=== PATIENT | male | born 1950 | race Caucasian/White ===

== ENCOUNTER → 2016-04-24 | Outpatient (CLI) | payer BC ==
--- NOTE | 2016-04-24 11:40 | DIAGNOSTIC IMAGING REPORT ---
RIGHT ANKLE MIN 3 VIEWS ROUTINE CLINICAL HISTORY: Right ankle pain COMPARISON: None. DISCUSSION: There is a tiny plantar calcaneal spur. There is a small subchondral cyst in the medial aspect of the talar dome. There is an age-indeterminate avulsion fracture arising from the lateral aspect of the talus. No additional fractures are visualized. There is lateral soft tissue swelling. IMPRESSION: Lateral soft tissue swelling, and small age-indeterminate sliver-like avulsion arising from the lateral aspect of the talus Electronically signed by: Ottoniel Flores M.D. 04/24/2016 11:39 AM Dictated Date/Time: 04/24/2016 11:38 AM
--- NOTE | 2016-04-24 11:43 | DIAGNOSTIC IMAGING REPORT ---
RIGHT KNEE 2 VIEWS CLINICAL HISTORY: Right knee pain. FINDINGS: AP and lateral views of the right knee are obtained. No prior studies are available for comparison at the time of dictation. The skeletal structures appear osteopenic. No fracture is seen. There is mild tricompartmental degenerative joint space narrowing, greatest in the patellofemoral compartment. There is a large calcified fabella. A small osteochondroma is suggested arising from the posterior aspect of the distal femur. No joint effusion is seen. The overlying soft tissues are within normal limits. IMPRESSION: No acute bony abnormality is seen in the right knee. Electronically signed by: Hossein Padron M.D. 04/24/2016 11:41 AM Dictated Date/Time: 04/24/2016 11:40 AM
== END | disposition home or self-care (01) ==
LOC: C.RAD1850 11:11
PROVIDERS: ATTEND Nurse Practitioner
DX: S93.401A Sprain of unspecified ligament of right ankle, initial encounter (principal); X58.XXXA Exposure to other specified factors, initial encounter

== ENCOUNTER → 2017-10-01 | Outpatient (CLI) | payer OTHER ==
--- NOTE | 2017-10-01 08:33 | DIAGNOSTIC IMAGING REPORT ---
ULTRASOUND EXAM AAA SCREEN CLINICAL HISTORY: TYPE 2 DM, NICOTINE DEPENDENCE aneurysm TECHNIQUE: Survey ultrasound abdominal aorta COMPARISON STUDY: None FINDINGS: Normal study. No evidence for aneurysm. IMPRESSION: Normal study The above report was generated using voice recognition software. It may contain grammatical, syntax or spelling errors. Electronically signed by: Tae Simon M.D. 10/01/2017 8:32 AM Dictated Date/Time: 10/01/2017 8:32 AM
== END | disposition home or self-care (01) ==
LOC: C.ULTR 08:07
PROVIDERS: ATTEND Family Medicine
DX: E11.9 Type 2 diabetes mellitus without complications (principal); F17.200 Nicotine dependence, unspecified, uncomplicated; Z87.891 Personal history of nicotine dependence

== ENCOUNTER 2021-10-16 08:00 | Inpatient (IN) ==
[2021-10-16] MEDS ORDERED: CEFEPIME 2,000 MG/20 ML VIAL IV STA (08:28)
[2021-10-16] MEDS ORDERED: SODIUM CHLORIDE 0.9% 1000ML 1,000 ML IV SCH (08:30)
[2021-10-16 09:02] LABS: Basophils # (auto) 0.02 K/uL (0-0.2); Basophils % (auto) 0.2 %; Eosinophils # (auto) 0.12 K/uL (0-0.50); Eosinophils % (auto) 1.1 %; Hematocrit (blood only) 36.7 % (40.1-51.0); Hemoglobin 12.4 g/dl (14.0-18.0); Immature Granulocytes # (auto) 0.05 K/uL (0.00-0.02); Immature Granulocytes % (auto) 0.4 %; Lymphocytes # (auto) 0.48 K/uL (1.2-3.4); Lymphocytes % (auto) 4.3 %; Mean Corpuscular Hemoglobin 30.1 pg (25.0-34.0); Mean Corpuscular Hgb Conc 33.8 g/dL (32.0-36.0); Mean Corpuscular Volume 89.1 fL (80.0-100.0); Mean Platelet Volume 9.5 fL (9.4-12.4); Monocytes # (auto) 1.47 K/uL (0.24-0.82); Monocytes % (auto) 13.2 %; Neutrophils # (auto) 9.03 K/uL (1.4-6.5); Neutrophils % (auto) 80.8 %; Platelet Count 251 K/uL (130-400); RDW Coefficient of Variation 13.2 % (11.5-14.5); RDW Standard Deviation 42.9 fL (36.4-46.3); Red Blood Count 4.12 M/uL (4.63-6.08); White Blood Count 11.17 K/ul (4.8-10.8)
--- NOTE | 2021-10-16 09:06 | XRay Report ---
SINGLE VIEW CHEST CLINICAL HISTORY: Cough FINDINGS: An AP, portable, upright chest radiograph is compared to study dated 02/12/2020. The cardio mediastinal silhouette is unremarkable. There are bibasilar airspace opacities, left greater than rig ht. No large pleural effusion or pneumothorax is seen. The skeletal structures are osteopenic. The [place] thorax is grossly intact. IMPRESSION: There are bibasilar airspace opacities, left greater than right. Correlate clinically for evidence of pneumonia/aspiration pneumonitis. Radiographic follow-up to resolution is recommended. ACT 112: Negative or not required by law. Electronically signed by: Hossein Padron M.D. 10/16/2021 9:03 AM
[2021-10-16 09:15] LABS: Partial Thromboplastin Time 28.8 Seconds (21.0-31.0); Prothrombin Time 10.4 Seconds (9.0-12.0)
[2021-10-16 09:29] LABS: Alanine Aminotransferase 11 U/L (7-52); Albumin Globulin Ratio 1.2 (0.9-2); Albumin Level 3.6 gm/dl (3.4-5.0); Alkaline Phosphatase 98 U/L (34-104); Anion Gap 13 (3-11); Aspartate Aminotransferase 11 U/L (13-39); BUN Creatinine Ratio 30.2 (10-20); Bilirubin,Total 1.5 mg/dl (0.2-1.0); Blood Urea Nitrogen 16 mg/dl (6-23); Calcium 8.9 mg/dl (8.5-10.1); Carbon Dioxide 24 mmol/L (21-32); Chloride 94 mmol/L (98-107); Est GFR (African American) 125.1 ml/min; Glucose 359 mg/dl (70-99(Fasting)); Magnesium 1.7 mg/dl (1.7-2.4); Potassium 3.5 mmol/L (3.5-5.1); Sodium 131 mmol/L (136-145); Total Protein 6.6 gm/dl (6.0-8.3)
[2021-10-16 09:31] LABS: Troponin I High Sensitivity 16.1 pg/ml (0-20)
[2021-10-16 09:55] LABS: Appearance Urine Clear (Clear); Bacteria Urine Automated Negative (Negative); Bilirubin Urine Negative (Negative); Blood Urine Negative (Negative); Cast Urine Automated 0 /lpf (0-5); Color Urine Yellow; Glucose Urine UA 3+ (Negative); Ketones Urine 4+ (Negative); Leukocyte Esterase Urine Negative (Negative); Nitrite Urine Negative (Negative); Protein Urine Trace (Negative); RBC Urine Automated 0-4 /hpf (0-4); Specific Gravity Urine 1.038 (1.000-1.030); Urobilinogen Urine Negative (Negative)
[2021-10-16 09:57] LABS: Adenovirus PCR Not Detected (NotDetected); Bordetella parapertussis PCR Not Detected (NotDetected); Bordetella pertussis PCR Not Detected (NotDetected); Chlamydia pneumoniae PCR Not Detected (NotDetected); Coronavirus 229E PCR Not Detected (NotDetected); Coronavirus CoV-2 (COVID19)PCR Not Detected (NotDetected); Coronavirus HKU1 PCR Not Detected (NotDetected); Coronavirus NL63 PCR Not Detected (NotDetected); Coronavirus OC43PCR Not Detected (NotDetected); Human Metapneumovirus PCR Not Detected (NotDetected); Influenza A PCR Not Detected (NotDetected); Influenza B PCR Not Detected (NotDetected); Mycoplasma pneumoniae PCR Not Detected (NotDetected); Parainfluenza Virus 1 PCR Not Detected (NotDetected); Parainfluenza Virus 2 PCR Not Detected (NotDetected); Parainfluenza Virus 3 PCR Not Detected (NotDetected); Parainfluenza Virus 4 PCR Not Detected (NotDetected); Respiratory Syncytial VirusPCR Not Detected (NotDetected); Rhinovirus/Enterovirus PCR Not Detected (NotDetected)
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
[2021-10-16] MEDS ORDERED: GLUCAGON FOR INJ 1 MG VIAL SQ PRN (10:35)
[2021-10-16] MEDS ORDERED: GLUCOSE 10 TAB/TUBE PO PRN (10:35)
[2021-10-16] MEDS ORDERED: DEXTROSE 50% 50 ML SYRINGE IV PRN (10:35)
[2021-10-16] MEDS ORDERED: CARBOHYDRATES FOR HYPOGLYCEMIA PO PRN (10:35)
[2021-10-16] MEDS ORDERED: GLUCOSE 40% GEL 15 GM TUBE PO PRN (10:35)
[2021-10-16] MEDS ORDERED: NovoLIN-R INSULIN PER UNIT CHARGE IV STA (10:42)
[2021-10-16] MEDS: LANTUS PER UNIT CHARGE SQ SCH ×2 (11:11→22:10)
[2021-10-16] MEDS ORDERED: OPTIRAY 320 100ml IV ONE (11:35)
--- NOTE | 2021-10-16 12:40 | CT Scan Report ---
CT OF THE CHEST WITH IV CONTRAST CLINICAL HISTORY: SOB, hypoxic, with known malignancy COMPARISON STUDY: Chest radiographs February 12, 2020 and October 16, 2021. PET/CT June 24, 2020. TECHNIQUE: Following IV administration of 94 mL of Optiray, helical axial images of the chest were o btained. Sagittal and coronal reconstructions were viewed as well as maximal intensity projections o n an independent 3-D workstation. Automated exposure control was utilized for the study. A dose low ering technique was utilized adhering to the principles of ALARA. CT DOSE: 268.69 mGy.cm FINDINGS: No pericardial effusion is present. There is moderate coronary artery calcification. There are multiple mildly enlarged mediastinal and bilateral hilar lymph nodes. Index left hilar node john ures 1.7 x 1.4 cm. Subcarinal lymph node measures 1.1 cm short axis diameter. Index right lower parat fannie lymph node measures 1.2 cm in short axis diameter. There is no pneumothorax. Small bilateral pleural effusions are noted. There is moderate bilateral lower lobe consolidation. Additional patchy airspace opacities within the right middle lobe are noted. There is no cavitation. Central airways ar e patent. There is no central obstructing mass. No suspicious pulmonary nodules are identified. No bhatti spicious lesions within the visualized bony thorax. Visualized portions of the upper abdomen are unre markable IMPRESSION: 1. Bilateral lower lobe consolidation and patchy right middle lobe airspace opacities. The findings s uggest multifocal pneumonia. 2. Small bilateral pleural effusions. 3. Mildly enlarged mediastinal and bilateral hilar lymph nodes. Although nonspecific, these are proba faviola reactive. A follow-up chest CT in 3-4 months to ensure resolution is recommended. ACT 112: Negative or not required by law. Electronically signed by: Zachariah Portillo M.D. 10/16/2021 12:38 PM
[2021-10-16] MEDS ORDERED: AZITHROMYCIN 250 MG TAB PO ONE (13:32)
[2021-10-16] MEDS: INSULIN ASPART PER UNIT SC SCH ×3 (14:16→22:10)
[2021-10-16] MEDS ORDERED: ONDANSETRON INJ 2 MG/ML 2 ML VIAL IV PRN (15:32)
[2021-10-16] MEDS ORDERED: ACETAMINOPHEN 325 MG TAB PO PRN (15:32)
[2021-10-16] MEDS ORDERED: POLYETHYLENE (MIRALAX) 17 GM PACK PO PRN (15:32)
[2021-10-16] MEDS ORDERED: BENZONATATE 100 MG CAPSULE PO PRN ×2 (15:56→16:05)
[2021-10-16] MEDS: Patient's HEIGHT &/or WEIGHT Needed SCH ×3 (16:47→23:58)
[2021-10-16] MEDS ORDERED: guaiFENesin 600 MG TABCR PO ONE (16:58)
[2021-10-16] MEDS ORDERED: CEFEPIME 2,000 MG/20 ML VIAL ONE (16:59)
[2021-10-16] MEDS: guaiFENesin 600 MG TABCR PO SCH (17:04)
[2021-10-16] MEDS: CEFEPIME 2,000 MG in SYRINGE 0 ML IV SCH ×2 (17:04→23:51)
--- NOTE | 2021-10-16 18:48 | Electrocardiogram Report ---
Test Reason : Blood Pressure : / mmHG Vent. Rate : 100 BPM Atrial Rate : 100 BPM P-R Int : 120 ms QRS Dur : 090 ms QT Int : 328 ms P-R-T Axes : 045 063 055 degrees QTc Int : 423 ms Normal sinus rhythm Nonspecific T wave abnormality Abnormal ECG When compared with ECG of 12-FEB-2020 09:45, Nonspecific T wave abnormality now evident in Inferior leads Nonspecific T wave abnormality now evident in Anterolateral leads Confirmed by Jose Root ([id number]) on 10/16/2021 6:47:47 PM Referred By: REFERRED SELF Confirmed By:Jorge Root
[2021-10-16] MEDS ORDERED: guaiFENesin 600 MG TABCR PO SCH (21:00)
[2021-10-16] MEDS: lisinopril 10 MG TAB PO SCH (22:09)
[2021-10-16] MEDS: ATORVASTATIN 20 MG TAB PO SCH (22:09)
[2021-10-16] MEDS: ASPIRIN 81 MG ECTAB PO SCH (22:10)
[2021-10-17 07:03] LABS: Urine Potassium 14.7 mmol/L
[2021-10-17 07:46] LABS: Basophils # (auto) 0.03 K/uL (0-0.2); Basophils % (auto) 0.3 %; Eosinophils # (auto) 0.23 K/uL (0-0.50); Eosinophils % (auto) 2.3 %; Hematocrit (blood only) 32.2 % (40.1-51.0); Immature Granulocytes # (auto) 0.07 K/uL (0.00-0.02); Immature Granulocytes % (auto) 0.7 %; Lymphocytes # (auto) 0.79 K/uL (1.2-3.4); Lymphocytes % (auto) 7.8 %; Mean Corpuscular Hemoglobin 29.8 pg (25.0-34.0); Mean Corpuscular Hgb Conc 34.2 g/dL (32.0-36.0); Mean Corpuscular Volume 87.3 fL (80.0-100.0); Mean Platelet Volume 9.1 fL (9.4-12.4); Monocytes # (auto) 1.82 K/uL (0.24-0.82); Monocytes % (auto) 17.9 %; Neutrophils # (auto) 7.25 K/uL (1.4-6.5); Platelet Count 242 K/uL (130-400); RDW Coefficient of Variation 12.9 % (11.5-14.5); RDW Standard Deviation 41.1 fL (36.4-46.3); Red Blood Count 3.69 M/uL (4.63-6.08); White Blood Count 10.19 K/ul (4.8-10.8)
[2021-10-17 08:09] LABS: Estimated Average Glucose 298 mg/dl
[2021-10-17 08:30] LABS: Alanine Aminotransferase 11 U/L (7-52); Albumin Globulin Ratio 1.2 (0.9-2); Albumin Level 3.2 gm/dl (3.4-5.0); Alkaline Phosphatase 76 U/L (34-104); Anion Gap 9 (3-11); Aspartate Aminotransferase 13 U/L (13-39); BUN Creatinine Ratio 32.4 (10-20); Bilirubin,Total 1.5 mg/dl (0.2-1.0); Blood Urea Nitrogen 11 mg/dl (6-23); Calcium 8.5 mg/dl (8.5-10.1); Carbon Dioxide 28 mmol/L (21-32); Chloride 98 mmol/L (98-107); Creatinine Clr Calc Pharmacy 198.4 ml/min; Est GFR (African American) > 150.0 ml/min; Est GFR (Non-African American) 129.6 ml/min; Globulin 2.7 gm/dl (2.5-4.0); Glucose 82 mg/dl (70-99(Fasting)); Magnesium 1.7 mg/dl (1.7-2.4); Potassium 2.7 mmol/L (3.5-5.1); Sodium 135 mmol/L (136-145); Total Protein 5.9 gm/dl (6.0-8.3)
[2021-10-17] MEDS: INSULIN ASPART PER UNIT SC SCH ×4 (08:43→22:02)
[2021-10-17] MEDS: LANTUS PER UNIT CHARGE SQ SCH ×2 (08:46→22:03)
[2021-10-17] MEDS: CEFEPIME 2,000 MG in SYRINGE 0 ML IV SCH ×3 (08:53→23:22)
[2021-10-17] MEDS: ENOXAPARIN INJ 40 MG/0.4 ML SYR SQ SCH (08:55)
[2021-10-17] MEDS: OXYBUTYNIN CHLORIDE XL 5 MG TABCR PO SCH (08:56)
[2021-10-17] MEDS ORDERED: POTASSIUM CHLORIDE 20 MEQ/15 ML UDC PO STA (08:57)
[2021-10-17] MEDS: guaiFENesin 600 MG TABCR PO SCH ×2 (08:57→22:01)
[2021-10-17] MEDS: CHOLECALCIFEROL 1,000 UNITS 25 MCG TAB PO SCH (08:58)
[2021-10-17] MEDS: ASCORBIC ACID 500 MG TAB PO SCH (08:59)
[2021-10-17] MEDS ORDERED: AZITHROMYCIN 250 MG TAB PO SCH (09:00)
[2021-10-17] MEDS: AZITHROMYCIN 250 MG TAB PO SCH (09:45)
[2021-10-17] MEDS ORDERED: POTASSIUM CHLORIDE 20 MEQ/15 ML UDC PO ONE (11:00)
[2021-10-17] MEDS: metroNIDAZOLE 500 MG/100 ML BAG IV SCH ×2 (11:14→17:40)
--- NOTE | 2021-10-17 15:22 | Hospitalist Progress Note ---
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 nightly Continue aspirin 81 mg daily Hyperlipidemia Continue atorvastatin 20 mg daily DVT prophylaxis: Lovenox Diet: Type II diabetic Disposition: Medical telemetry CODE STATUS: DNR/DNI (2) Respiratory failure with hypoxia: Plan: Secondary to above, incentive spirometry and wean as tolerated (3) Thrush: Plan: Had completed a round of oral antifungals, and topical antifungal plus steroid cream after his prostatectomy Reports this resolved subsequently, is no longer on any oral antifungals (4) Balanitis: Plan: As above (5) Lymphocele: Plan: No complaints voiced in this regard will look into as appropriate (6) Rising PSA following treatment for malignant neoplasm of prostate: Plan: History of prostate cancer with residual LUTS symptoms Initially 3B prostate cancer, [place] 4+5 last seen 06/03 noted to have lymph node recurrence PSA of 13 in 2019 S/p prostatectomy 03/2020, subsequently referred to radiation oncology however patient declined this on consultation PET scan 06/2019 with right iliac lymph node suspicious for metastatic disease, potential left clavicle disease. Bone scan 08/2020 with no definite metastatic disease. Prostate MRI 08/2020 with enlarged right iliac lymph change node suspicious for metastasis Referred to medical oncology and was seen by Dr. Soria 08/2020. Discussed with patient, he reports he did have a/benefit discussion regarding his cancer and metastasis with radiation oncology and medical oncology, and following these discussions has chosen to defer any radiation or chemotherapy. He reports he understands that his cancer may progress, that he has metastasis, but he did not feel the decreased quality of life going through chemo was worth the at most 30% chance of success. Continue oxybutynin (7) Diabetes: Plan: Sugars still fluctuatingno change for today (8) Ambulatory dysfunction: Plan: PT/OT (9) Hypokalemia: Plan: Replace aggressively Admission and Anticipated Discharge Date Admission Date: October 16, 2021 Subjective Follow-up of presentation of cough, feverdoing better Physical Exam Physical Exam: Constitutional and general: No acute distress, looks biologic age Head and face: No puffiness, atraumatic Eyes: No scleral icterus, extraocular movements normal Neck: Supple, no JVD Musculoskeletal: No acute joint swelling, no bony abnormalities Skin/dermatologic/integument: No rash, no purpura Hematologic and lymphatic: pallor +, no petechia Gastrointestinal/abdomen: Nondistended, soft, nonacute Neurologic: Cranial nerves intact, nonfocal Psychiatry: Awake, alert, pleasant, communicative Cardiovascular: Heart rhythm regular, no rub, no murmur, no gallop Respiratory: Chest movements equal, no use of accessory muscles, decreased breath sounds both bases Extremities: No edema, no cyanosis Results & Data Results & [facility] ([facility]) Vital Signs (Past 12 Hours) Vital Signs Temp Pulse Resp BP BP Pulse Ox O2 Del Method 10/17/21 08:00 Nasal Cannula 10/17/21 12:43 36.6 C 81 18 127/71 96 Nasal Cannula 10/17/21 08:28 37.5 C 88 20 129/85 92 Nasal Cannula 10/17/21 04:00 37.0 C 81 18 123/72 97 Nasal Cannula O2 Flow Rate 10/17/21 08:00 2 10/17/21 12:43 2 10/17/21 08:28 2 10/17/21 04:00 3 Laboratory Results Laboratory Results - last 24 hr 10/16/21 10/16/21 10/17/21 16:50 21:45 06:05 WBC RBC Hgb Hct MCV MCH MCHC RDW Std Deviation RDW Coeff of Aristeo Plt Count MPV Immature Gran % (Auto) Neut % (Auto) Lymph % (Auto) [place] % (Auto) Eos % (Auto) Baso % (Auto) Neut # (Auto) Lymph # (Auto) [place] # (Auto) Eos # (Auto) Baso # (Auto) Immature Gran # (Auto) Sodium Potassium Chloride Carbon Dioxide Anion Gap BUN Creatinine Est Cr Clr Drug Dosing Est GFR ( Amer) Est GFR (Non-Af Amer) BUN/Creatinine Ratio Glucose POC Glucose 185 H 124 H Estimat Average Glucose Hemoglobin A1c Osmolality Calcium Magnesium Total Bilirubin AST ALT Alkaline Phosphatase Total Protein Albumin Globulin Albumin/Globulin Ratio Procalcitonin Urine Osmolality 295 L Urine Sodium Urine Potassium Urine Chloride Urine Legionella Ag 10/17/21 10/17/21 10/17/21 06:05 07:26 07:26 WBC 10.19 RBC 3.69 L Hgb 11.0 L Hct 32.2 L MCV 87.3 MCH 29.8 MCHC 34.2 RDW Std Deviation 41.1 RDW Coeff of Aristeo 12.9 Plt Count 242 MPV 9.1 L Immature Gran % (Auto) 0.7 Neut % (Auto) 71.0 Lymph % (Auto) 7.8 [place] % (Auto) 17.9 Eos % (Auto) 2.3 Baso % (Auto) 0.3 Neut # (Auto) 7.25 H Lymph # (Auto) 0.79 L [place] # (Auto) 1.82 H Eos # (Auto) 0.23 Baso # (Auto) 0.03 Immature Gran # (Auto) 0.07 H Sodium Potassium Chloride Carbon Dioxide Anion Gap BUN Creatinine Est Cr Clr Drug Dosing Est GFR ( Amer) Est GFR (Non-Af Amer) BUN/Creatinine Ratio Glucose POC Glucose Estimat Average Glucose Hemoglobin A1c Osmolality 276 L Calcium Magnesium Total Bilirubin AST ALT Alkaline Phosphatase Total Protein Albumin Globulin Albumin/Globulin Ratio Procalcitonin Urine Osmolality Urine Sodium 23 Urine Potassium 14.7 Urine Chloride 63 Urine Legionella Ag 10/17/21 10/17/21 10/17/21 07:26 07:26 07:26 WBC RBC Hgb Hct MCV MCH MCHC RDW Std Deviation RDW Coeff of Aristeo Plt Count MPV Immature Gran % (Auto) Neut % (Auto) Lymph % (Auto) [place] % (Auto) Eos % (Auto) Baso % (Auto) Neut # (Auto) Lymph # (Auto) [place] # (Auto) Eos # (Auto) Baso # (Auto) Immature Gran # (Auto) Sodium 135 L Potassium 2.7 L D Chloride 98 Carbon Dioxide 28 Anion Gap 9 BUN 11 Creatinine 0.34 L Est Cr Clr Drug Dosing 198.4 Est GFR ( Amer) > 150.0 Est GFR (Non-Af Amer) 129.6 BUN/Creatinine Ratio 32.4 H Glucose 82 POC Glucose Estimat Average Glucose 298 Hemoglobin A1c 12.0 H Osmolality Calcium 8.5 Magnesium 1.7 Total Bilirubin 1.5 H AST 13 ALT 11 Alkaline Phosphatase 76 Total Protein 5.9 L Albumin 3.2 L Globulin 2.7 Albumin/Globulin Ratio 1.2 Procalcitonin 0.32 Urine Osmolality Urine Sodium Urine Potassium Urine Chloride Urine Legionella Ag 10/17/21 10/17/21 10/17/21 08:03 11:56 12:58 WBC RBC Hgb Hct MCV MCH MCHC RDW Std Deviation RDW Coeff of Aristeo Plt Count MPV Immature Gran % (Auto) Neut % (Auto) Lymph % (Auto) [place] % (Auto) Eos % (Auto) Baso % (Auto) Neut # (Auto) Lymph # (Auto) [place] # (Auto) Eos # (Auto) Baso # (Auto) Immature Gran # (Auto) Sodium Potassium Chloride Carbon Dioxide Anion Gap BUN Creatinine Est Cr Clr Drug Dosing Est GFR ( Amer) Est GFR (Non-Af Amer) BUN/Creatinine Ratio Glucose POC Glucose 90 246 H Estimat Average Glucose Hemoglobin A1c Osmolality Calcium Magnesium Total Bilirubin AST ALT Alkaline Phosphatase Total Protein Albumin Globulin Albumin/Globulin Ratio Procalcitonin Urine Osmolality Urine Sodium Urine Potassium Urine Chloride Urine Legionella Ag Pending PG Care Time/CCT Total # of Minutes Spent Total Time Spent with Patient: Total time spent is greater than 50% in coordination of care (as documented) at patient's floor/unit and/or counseling patient: Coding Level of Care Code 94078 Subseq Hosp Care Lvl 2 Diagnoses Pneumonia of both lower lobes J18.9 Respiratory failure with hypoxia J96.91 Thrush B37.0 Balanitis N48.1 Lymphocele I89.8 Rising PSA following treatment for malignant neoplasm of prostate R97.21 Diabetes E11.9 Ambulatory dysfunction R26.2 Hypokalemia E87.6
[2021-10-17] MEDS: lisinopril 10 MG TAB PO SCH (22:01)
[2021-10-17] MEDS: ASPIRIN 81 MG ECTAB PO SCH (22:01)
[2021-10-17] MEDS: ATORVASTATIN 20 MG TAB PO SCH (22:02)
[2021-10-18] MEDS: metroNIDAZOLE 500 MG/100 ML BAG IV SCH ×2 (01:53→09:16)
[2021-10-18 07:39] LABS: Basophils # (auto) 0.02 K/uL (0-0.2); Basophils % (auto) 0.2 %; Eosinophils # (auto) 0.49 K/uL (0-0.50); Eosinophils % (auto) 5.4 %; Hematocrit (blood only) 31.8 % (40.1-51.0); Hemoglobin 10.7 g/dl (14.0-18.0); Immature Granulocytes # (auto) 0.04 K/uL (0.00-0.02); Immature Granulocytes % (auto) 0.4 %; Lymphocytes # (auto) 0.83 K/uL (1.2-3.4); Lymphocytes % (auto) 9.2 %; Mean Corpuscular Hemoglobin 29.8 pg (25.0-34.0); Mean Corpuscular Hgb Conc 33.6 g/dL (32.0-36.0); Mean Corpuscular Volume 88.6 fL (80.0-100.0); Mean Platelet Volume 9.5 fL (9.4-12.4); Monocytes # (auto) 1.54 K/uL (0.24-0.82); Neutrophils # (auto) 6.15 K/uL (1.4-6.5); Neutrophils % (auto) 67.8 %; Platelet Count 258 K/uL (130-400); RDW Standard Deviation 42.2 fL (36.4-46.3); Red Blood Count 3.59 M/uL (4.63-6.08); White Blood Count 9.07 K/ul (4.8-10.8)
[2021-10-18 08:11] LABS: Albumin Globulin Ratio 1.1 (0.9-2); Albumin Level 2.9 gm/dl (3.4-5.0); BUN Creatinine Ratio 27.5 (10-20); Bilirubin,Total 1.1 mg/dl (0.2-1.0); Calcium 8.2 mg/dl (8.5-10.1); Creatinine Clr Calc Pharmacy 168.6 ml/min; Est GFR (African American) 140.5 ml/min; Est GFR (Non-African American) 121.2 ml/min; Globulin 2.6 gm/dl (2.5-4.0); Magnesium 1.7 mg/dl (1.7-2.4); Phosphorus 2.6 mg/dl (2.5-4.9); Potassium 3.4 mmol/L (3.5-5.1); Total Protein 5.5 gm/dl (6.0-8.3)
[2021-10-18] MEDS: INSULIN ASPART PER UNIT SC SCH ×4 (09:10→21:44)
[2021-10-18] MEDS: LANTUS PER UNIT CHARGE SQ SCH ×2 (09:11→21:45)
[2021-10-18] MEDS: CEFEPIME 2,000 MG in SYRINGE 0 ML IV SCH ×3 (09:15→23:55)
[2021-10-18] MEDS: ASCORBIC ACID 500 MG TAB PO SCH (09:16)
[2021-10-18] MEDS: AZITHROMYCIN 250 MG TAB PO SCH (09:16)
[2021-10-18] MEDS: guaiFENesin 600 MG TABCR PO SCH ×2 (09:16→20:24)
[2021-10-18] MEDS: CHOLECALCIFEROL 1,000 UNITS 25 MCG TAB PO SCH (09:16)
[2021-10-18] MEDS: OXYBUTYNIN CHLORIDE XL 5 MG TABCR PO SCH (09:16)
[2021-10-18] MEDS: ENOXAPARIN INJ 40 MG/0.4 ML SYR SQ SCH (09:17)
[2021-10-18] MEDS ORDERED: POTASSIUM CHLORIDE 20 MEQ/15 ML UDC PO STA (11:26)
--- NOTE | 2021-10-18 15:36 | Hospitalist Progress Note ---
Date of Service October 18, 2021 Assessment & Plan (1) Pneumonia of both lower lobes: Plan: Unusual pneumonia; nothing to suggest aspiration by speech eval; stop metronidazole but continue other antibiotics; add flutter valve Intrathoracic adenopathy will have to be followed (2) Respiratory failure with hypoxia: Plan: Secondary to above, incentive spirometry and wean as tolerated; added flutter valve as above (3) Lymphocele: Plan: No complaints voiced in this regard will look into as appropriate (4) Rising PSA following treatment for malignant neoplasm of prostate: Plan: Oncology note from May 2021 noted; outpatient follow-up (5) Diabetes: Plan: Sugars in general acceptableno change to today; A1c 11.2; discussed uncontrolled DM that needs to be properly addressed; he states she is working with his PCP (6) Ambulatory dysfunction: Plan: PT/OT (7) Hypokalemia: Plan: Replace Plan Follow anemia and mildly elevated bilirubin (in regards to the latter no clinical correlate) Admission and Anticipated Discharge Date Admission Date: October 16, 2021 Subjective Follow-up of presentation of cough, feveroverall doing better Physical Exam Physical Exam: Constitutional and general: No acute distress, looks biologic age Head and face: No puffiness, atraumatic Eyes: No scleral icterus, extraocular movements normal Neck: Supple, no JVD Musculoskeletal: No acute joint swelling, no bony abnormalities Skin/dermatologic/integument: No rash, no purpura Hematologic and lymphatic: pallor +, no petechia Gastrointestinal/abdomen: Nondistended, soft, nonacute Neurologic: Cranial nerves intact, nonfocal Psychiatry: Awake, alert, pleasant, communicative Cardiovascular: Heart rhythm regular, no rub, no murmur, no gallop Respiratory: Chest movements equal, no use of accessory muscles, decreased breath sounds both bases Extremities: No edema, no cyanosis Results & Data Results & Data ([facility]) Vital Signs (Past 12 Hours) Vital Signs Temp Pulse Pulse Resp BP Pulse Ox O2 Del Method 10/18/21 13:18 Nasal Cannula 10/18/21 11:19 36.8 C 82 18 108/70 93 Nasal Cannula 10/18/21 07:44 36.7 C 78 18 96/63 L 93 Nasal Cannula 10/18/21 07:10 77 O2 Flow Rate 10/18/21 13:18 2 10/18/21 11:19 2 10/18/21 07:44 2 10/18/21 07:10 Laboratory Results Laboratory Results - last 24 hr 10/17/21 10/17/21 10/18/21 16:30 20:25 06:57 WBC 9.07 RBC 3.59 L Hgb 10.7 L Hct 31.8 L MCV 88.6 MCH 29.8 MCHC 33.6 RDW Std Deviation 42.2 RDW Coeff of Aristeo 13.0 Plt Count 258 MPV 9.5 Immature Gran % (Auto) 0.4 Neut % (Auto) 67.8 Lymph % (Auto) 9.2 [place] % (Auto) 17.0 Eos % (Auto) 5.4 Baso % (Auto) 0.2 Neut # (Auto) 6.15 Lymph # (Auto) 0.83 L [place] # (Auto) 1.54 H Eos # (Auto) 0.49 Baso # (Auto) 0.02 Immature Gran # (Auto) 0.04 H Sodium Potassium Chloride Carbon Dioxide Anion Gap BUN Creatinine Est Cr Clr Drug Dosing Est GFR ( Amer) Est GFR (Non-Af Amer) BUN/Creatinine Ratio Glucose POC Glucose 196 H 177 H Calcium Phosphorus Magnesium Total Bilirubin AST ALT Alkaline Phosphatase Total Protein Albumin Globulin Albumin/Globulin Ratio 10/18/21 10/18/21 10/18/21 06:57 07:51 11:44 WBC RBC Hgb Hct MCV MCH MCHC RDW Std Deviation RDW Coeff of Aristeo Plt Count MPV Immature Gran % (Auto) Neut % (Auto) Lymph % (Auto) [place] % (Auto) Eos % (Auto) Baso % (Auto) Neut # (Auto) Lymph # (Auto) [place] # (Auto) Eos # (Auto) Baso # (Auto) Immature Gran # (Auto) Sodium 135 L Potassium 3.4 L D Chloride 98 Carbon Dioxide 30 Anion Gap 7 BUN 11 Creatinine 0.40 L Est Cr Clr Drug Dosing 168.6 Est GFR ( Amer) 140.5 Est GFR (Non-Af Amer) 121.2 BUN/Creatinine Ratio 27.5 H Glucose 117 H POC Glucose 122 H 186 H Calcium 8.2 L Phosphorus 2.6 Magnesium 1.7 Total Bilirubin 1.1 H AST 19 ALT 18 Alkaline Phosphatase 81 Total Protein 5.5 L Albumin 2.9 L Globulin 2.6 Albumin/Globulin Ratio 1.1 PG Care Time/CCT Total # of Minutes Spent Total Time Spent with Patient: Total time spent is greater than 50% in coordination of care (as documented) at patient's floor/unit and/or counseling patient: Coding Level of Care Code 61153 Subseq Hosp Care Lvl 2 Diagnoses Pneumonia of both lower lobes J18.9 Respiratory failure with hypoxia J96.91 Lymphocele I89.8 Rising PSA following treatment for malignant neoplasm of prostate R97.21 Diabetes E11.9 Ambulatory dysfunction R26.2 Hypokalemia E87.6
[2021-10-18] MEDS: ATORVASTATIN 20 MG TAB PO SCH (20:24)
[2021-10-18] MEDS: ASPIRIN 81 MG ECTAB PO SCH (20:24)
[2021-10-18] MEDS: lisinopril 10 MG TAB PO SCH (20:25)
[2021-10-19 06:26] LABS: Basophils # (auto) 0.02 K/uL (0-0.2); Basophils % (auto) 0.3 %; Eosinophils # (auto) 0.69 K/uL (0-0.50); Eosinophils % (auto) 9.5 %; Hematocrit (blood only) 30.8 % (40.1-51.0); Hemoglobin 10.3 g/dl (14.0-18.0); Immature Granulocytes # (auto) 0.04 K/uL (0.00-0.02); Immature Granulocytes % (auto) 0.6 %; Lymphocytes # (auto) 0.97 K/uL (1.2-3.4); Lymphocytes % (auto) 13.4 %; Mean Corpuscular Hemoglobin 29.4 pg (25.0-34.0); Mean Corpuscular Hgb Conc 33.4 g/dL (32.0-36.0); Mean Platelet Volume 9.2 fL (9.4-12.4); Monocytes # (auto) 1.14 K/uL (0.24-0.82); Monocytes % (auto) 15.8 %; Neutrophils # (auto) 4.37 K/uL (1.4-6.5); Neutrophils % (auto) 60.4 %; Platelet Count 268 K/uL (130-400); RDW Coefficient of Variation 13.2 % (11.5-14.5); RDW Standard Deviation 42.6 fL (36.4-46.3); White Blood Count 7.23 K/ul (4.8-10.8)
[2021-10-19 06:46] LABS: Albumin Globulin Ratio 1.1 (0.9-2); Albumin Level 2.8 gm/dl (3.4-5.0); BUN Creatinine Ratio 30.2 (10-20); Calcium 8.1 mg/dl (8.5-10.1); Creatinine Clr Calc Pharmacy 156.9 ml/min; Est GFR (African American) 136.4 ml/min; Est GFR (Non-African American) 117.6 ml/min; Globulin 2.6 gm/dl (2.5-4.0); Magnesium 1.8 mg/dl (1.7-2.4); Potassium 3.9 mmol/L (3.5-5.1); Total Protein 5.4 gm/dl (6.0-8.3)
[2021-10-19] MEDS: AZITHROMYCIN 250 MG TAB PO SCH (08:20)
[2021-10-19] MEDS: ENOXAPARIN INJ 40 MG/0.4 ML SYR SQ SCH (08:20)
[2021-10-19] MEDS: ASCORBIC ACID 500 MG TAB PO SCH (08:20)
[2021-10-19] MEDS: guaiFENesin 600 MG TABCR PO SCH ×2 (08:20→22:05)
[2021-10-19] MEDS: CHOLECALCIFEROL 1,000 UNITS 25 MCG TAB PO SCH (08:20)
[2021-10-19] MEDS: OXYBUTYNIN CHLORIDE XL 5 MG TABCR PO SCH (08:20)
[2021-10-19] MEDS: CEFEPIME 2,000 MG in SYRINGE 0 ML IV SCH ×3 (08:29→23:50)
[2021-10-19] MEDS: INSULIN ASPART PER UNIT SC SCH ×4 (08:29→22:05)
[2021-10-19] MEDS: LANTUS PER UNIT CHARGE SQ SCH ×2 (08:32→22:06)
--- NOTE | 2021-10-19 15:16 | Hospitalist Progress Note ---
Date of Service October 19, 2021 Assessment & Plan (1) Pneumonia of both lower lobes: Plan: Unusual pneumonia; nothing to suggest aspiration by speech eval; probably does not need antipseudomonal beta-lactam but continue current antibiotics for now; continue flutter valve and incentive spirometry; can consider more aggressive pulmonary toilet Intrathoracic adenopathy will have to be followed Sputum culture reordered! Urine Legionella antigen though low suspicion (2) Respiratory failure with hypoxia: Plan: Secondary to above, incentive spirometry and flutter valve, as above Depending on course can reimage, consider pulmonary input (3) Lymphocele: Plan: No complaints voiced in this regard (4) Rising PSA following treatment for malignant neoplasm of prostate: Plan: Oncology note from May 2021 noted; outpatient follow-up (5) Diabetes: Plan: Sugars in general acceptableno change today; A1c 11.2; discussed uncontrolled DM that needs to be properly addressed; he states he is working with PCP (6) Ambulatory dysfunction: Plan: PT/OT (7) Anemia: Plan: Noted drifting down hemoglobin but no clinical bleeding (asked again)likely inflammatory; observe; asked that he look for bleeding/dark stoolsoccult not ordered Admission and Anticipated Discharge Date Admission Date: October 16, 2021 Subjective Follow-up of presentation of cough, feveroverall doing better since admissionno particular change since yesterday Physical Exam Physical Exam: Constitutional and general: No acute distress, looks biologic age Head and face: No puffiness, atraumatic Eyes: No scleral icterus, extraocular movements normal Neck: Supple, no JVD Musculoskeletal: No acute joint swelling, no bony abnormalities Skin/dermatologic/integument: No rash, no purpura Hematologic and lymphatic: pallor +, no petechia Gastrointestinal/abdomen: Nondistended, soft, nonacute Neurologic: Cranial nerves intact, nonfocal Psychiatry: Awake, alert, pleasant, communicative Cardiovascular: Heart rhythm regular, no rub, no murmur, no gallop Respiratory: Chest movements equal, no use of accessory muscles, decreased breath sounds both bases Extremities: No edema, no cyanosis Results & Data Results & Data ([facility]) Vital Signs (Past 12 Hours) Vital Signs Temp Pulse Pulse Resp BP Pulse Ox O2 Del Method 10/19/21 11:09 36.9 C 80 16 114/73 97 Nasal Cannula 10/19/21 07:30 Nasal Cannula 10/19/21 08:05 36.5 C 75 16 127/78 95 Nasal Cannula 10/19/21 07:44 82 10/19/21 03:44 37.0 C 78 18 125/73 95 Nasal Cannula O2 Flow Rate 10/19/21 11:09 2 10/19/21 07:30 2 10/19/21 08:05 2 10/19/21 07:44 10/19/21 03:44 2 Laboratory Results Laboratory Results - last 24 hr 10/18/21 10/18/21 10/19/21 16:44 21:15 06:00 WBC 7.23 RBC 3.50 L Hgb 10.3 L Hct 30.8 L MCV 88.0 MCH 29.4 MCHC 33.4 RDW Std Deviation 42.6 RDW Coeff of Aristeo 13.2 Plt Count 268 MPV 9.2 L Immature Gran % (Auto) 0.6 Neut % (Auto) 60.4 Lymph % (Auto) 13.4 [place] % (Auto) 15.8 Eos % (Auto) 9.5 Baso % (Auto) 0.3 Neut # (Auto) 4.37 Lymph # (Auto) 0.97 L [place] # (Auto) 1.14 H Eos # (Auto) 0.69 H Baso # (Auto) 0.02 Immature Gran # (Auto) 0.04 H Sodium Potassium Chloride Carbon Dioxide Anion Gap BUN Creatinine Est Cr Clr Drug Dosing Est GFR ( Amer) Est GFR (Non-Af Amer) BUN/Creatinine Ratio Glucose POC Glucose 168 H 154 H Calcium Phosphorus Magnesium Total Bilirubin AST ALT Alkaline Phosphatase Total Protein Albumin Globulin Albumin/Globulin Ratio 10/19/21 10/19/21 10/19/21 06:00 07:57 11:42 WBC RBC Hgb Hct MCV MCH MCHC RDW Std Deviation RDW Coeff of Aristeo Plt Count MPV Immature Gran % (Auto) Neut % (Auto) Lymph % (Auto) [place] % (Auto) Eos % (Auto) Baso % (Auto) Neut # (Auto) Lymph # (Auto) [place] # (Auto) Eos # (Auto) Baso # (Auto) Immature Gran # (Auto) Sodium 134 L Potassium 3.9 Chloride 98 Carbon Dioxide 29 Anion Gap 7 BUN 13 Creatinine 0.43 L Est Cr Clr Drug Dosing 156.9 Est GFR ( Amer) 136.4 Est GFR (Non-Af Amer) 117.6 BUN/Creatinine Ratio 30.2 H Glucose 154 H POC Glucose 146 H 176 H Calcium 8.1 L Phosphorus 3.0 Magnesium 1.8 Total Bilirubin 1.0 AST 14 ALT 15 Alkaline Phosphatase 76 Total Protein 5.4 L Albumin 2.8 L Globulin 2.6 Albumin/Globulin Ratio 1.1 PG Care Time/CCT Total # of Minutes Spent Total Time Spent with Patient: Total time spent is greater than 50% in coordination of care (as documented) at patient's floor/unit and/or counseling patient: Coding Level of Care Code 26052 Subseq Hosp Care Lvl 2 Diagnoses Pneumonia of both lower lobes J18.9 Respiratory failure with hypoxia J96.91 Lymphocele I89.8 Rising PSA following treatment for malignant neoplasm of prostate R97.21 Diabetes E11.9 Ambulatory dysfunction R26.2 Anemia D64.9
[2021-10-19] MEDS: ASPIRIN 81 MG ECTAB PO SCH (22:04)
[2021-10-19] MEDS: lisinopril 10 MG TAB PO SCH (22:04)
[2021-10-19] MEDS: ATORVASTATIN 20 MG TAB PO SCH (22:04)
[2021-10-20 06:12] LABS: Basophils # (auto) 0.03 K/uL (0-0.2); Basophils % (auto) 0.4 %; Eosinophils # (auto) 0.79 K/uL (0-0.50); Eosinophils % (auto) 10.9 %; Hematocrit (blood only) 31.7 % (40.1-51.0); Hemoglobin 10.6 g/dl (14.0-18.0); Immature Granulocytes # (auto) 0.06 K/uL (0.00-0.02); Immature Granulocytes % (auto) 0.8 %; Lymphocytes # (auto) 1.07 K/uL (1.2-3.4); Lymphocytes % (auto) 14.8 %; Mean Corpuscular Hemoglobin 29.5 pg (25.0-34.0); Mean Corpuscular Hgb Conc 33.4 g/dL (32.0-36.0); Mean Corpuscular Volume 88.3 fL (80.0-100.0); Mean Platelet Volume 9.3 fL (9.4-12.4); Monocytes # (auto) 1.08 K/uL (0.24-0.82); Monocytes % (auto) 14.9 %; Neutrophils # (auto) 4.22 K/uL (1.4-6.5); Neutrophils % (auto) 58.2 %; Platelet Count 318 K/uL (130-400); RDW Coefficient of Variation 13.1 % (11.5-14.5); RDW Standard Deviation 42.7 fL (36.4-46.3); Red Blood Count 3.59 M/uL (4.63-6.08); White Blood Count 7.25 K/ul (4.8-10.8)
[2021-10-20 06:26] LABS: Albumin Level 2.9 gm/dl (3.4-5.0); BUN Creatinine Ratio 23.3 (10-20); Bilirubin,Total 0.8 mg/dl (0.2-1.0); Calcium 8.4 mg/dl (8.5-10.1); Creatinine Clr Calc Pharmacy 156.9 ml/min; Est GFR (African American) 136.4 ml/min; Est GFR (Non-African American) 117.6 ml/min; Phosphorus 3.6 mg/dl (2.5-4.9); Potassium 3.9 mmol/L (3.5-5.1); Total Protein 5.9 gm/dl (6.0-8.3)
[2021-10-20] MEDS: LANTUS PER UNIT CHARGE SQ SCH ×2 (08:39→21:09)
[2021-10-20] MEDS: INSULIN ASPART PER UNIT SC SCH ×4 (08:39→21:09)
[2021-10-20] MEDS: ENOXAPARIN INJ 40 MG/0.4 ML SYR SQ SCH (08:40)
[2021-10-20] MEDS: guaiFENesin 600 MG TABCR PO SCH ×2 (08:40→20:02)
[2021-10-20] MEDS: CEFEPIME 2,000 MG in SYRINGE 0 ML IV SCH ×3 (08:40→23:27)
[2021-10-20] MEDS: AZITHROMYCIN 250 MG TAB PO SCH (08:40)
[2021-10-20] MEDS: OXYBUTYNIN CHLORIDE XL 5 MG TABCR PO SCH (08:41)
[2021-10-20] MEDS: CHOLECALCIFEROL 1,000 UNITS 25 MCG TAB PO SCH (08:41)
[2021-10-20] MEDS: ASCORBIC ACID 500 MG TAB PO SCH (08:41)
--- NOTE | 2021-10-20 15:30 | Hospitalist Progress Note ---
Date of Service October 20, 2021 Assessment & Plan (1) Pneumonia of both lower lobes: Plan: Patient presents to the [facility] with cough and sob CT chest and x ray confirm lobar pna cultures have been obtained, Currently on cefepime Afebrile, wbc wnl (2) Respiratory failure with hypoxia: Plan: Secondary to above, incentive spirometry and flutter valve, as above Depending on course can reimage, consider pulmonary input (3) Lymphocele: Plan: No complaints voiced in this regard (4) Rising PSA following treatment for malignant neoplasm of prostate: Plan: Oncology note from May 2021 noted; outpatient follow-up (5) Diabetes: Plan: Sugars in general acceptableno change today; A1c 11.2; discussed uncontrolled DM that needs to be properly addressed; he states he is working with PCP (6) Ambulatory dysfunction: Plan: PT/OT (7) Anemia: Plan: Noted drifting down hemoglobin but no clinical bleeding (asked again)likely inflammatory; observe; asked that he look for bleeding/dark stoolsoccult not ordered Admission and Anticipated Discharge Date Admission Date: October 16, 2021 Subjective patient seen and examined, says cough is better Review of Systems Review of Systems: All systems reviewed are negative, apart from the ones contained in the history. Physical Exam Physical Exam: The patient is awake, alert and oriented 3, well developed and well nourished, normocephalic and atraumatic, lying in bed and in no acute distress. HEENT--PERRL, EOMI, mucous membranes and oropharynx mildly dry Neck--supple. No JVD. No bruits. Thyroid normal, trachea midline, no adenopathy. Heart--normal S1 and S2. No murmurs, rubs or gallops. Lungs--clear bilaterally, no respiratory distress, no accessory muscle use. Abdomen--normal bowel sounds and soft. Mild epigastric and left sided abdominal pain Extremities--no cyanosis or clubbing. No edema. Dermatologic--normal skin turgor, normal color, no abnormal lymph nodes, no rash. Neurologic--cranial nerves II through XII grossly intact. Rheumatologic--normal range of motion. Psychiatric--normal affect. Results & Data Results & Data ([facility]) Vital Signs (Past 12 Hours) Vital Signs Temp Pulse Pulse Resp BP Pulse Ox O2 Del Method 10/20/21 15:00 98.8 F 76 18 111/71 98 Nasal Cannula 10/20/21 11:41 98.1 F 81 18 116/75 97 Nasal Cannula 10/20/21 07:40 98.4 F 78 18 110/67 92 Nasal Cannula 10/20/21 07:22 73 O2 Flow Rate 10/20/21 15:00 2 10/20/21 11:41 2 10/20/21 07:40 2 10/20/21 07:22 PG Care Time/CCT Total # of Minutes Spent Total Time Spent with Patient: Total time spent is greater than 50% in coordination of care (as documented) at patient's floor/unit and/or counseling patient: Coding Level of Care Code 05062 Subseq Hosp Care Lvl 2 Diagnoses Pneumonia of both lower lobes J18.9 Respiratory failure with hypoxia J96.91 Lymphocele I89.8 Rising PSA following treatment for malignant neoplasm of prostate R97.21 Diabetes E11.9 Ambulatory dysfunction R26.2 Anemia D64.9 Time Spent (min) 35
[2021-10-20] MEDS: ASPIRIN 81 MG ECTAB PO SCH (20:00)
[2021-10-20] MEDS: lisinopril 10 MG TAB PO SCH (20:01)
[2021-10-20] MEDS: ATORVASTATIN 20 MG TAB PO SCH (20:01)
[2021-10-21 06:57] LABS: Basophils # (auto) 0.04 K/uL (0-0.2); Basophils % (auto) 0.6 %; Eosinophils # (auto) 0.66 K/uL (0-0.50); Eosinophils % (auto) 9.3 %; Hematocrit (blood only) 30.8 % (40.1-51.0); Hemoglobin 10.3 g/dl (14.0-18.0); Immature Granulocytes # (auto) 0.05 K/uL (0.00-0.02); Immature Granulocytes % (auto) 0.7 %; Lymphocytes % (auto) 12.7 %; Mean Corpuscular Hemoglobin 29.9 pg (25.0-34.0); Mean Corpuscular Hgb Conc 33.4 g/dL (32.0-36.0); Mean Corpuscular Volume 89.5 fL (80.0-100.0); Mean Platelet Volume 8.8 fL (9.4-12.4); Monocytes # (auto) 0.98 K/uL (0.24-0.82); Monocytes % (auto) 13.9 %; Neutrophils # (auto) 4.43 K/uL (1.4-6.5); Neutrophils % (auto) 62.8 %; Platelet Count 357 K/uL (130-400); RDW Coefficient of Variation 13.5 % (11.5-14.5); RDW Standard Deviation 44.1 fL (36.4-46.3); Red Blood Count 3.44 M/uL (4.63-6.08); White Blood Count 7.06 K/ul (4.8-10.8)
[2021-10-21 07:16] LABS: Albumin Level 2.9 gm/dl (3.4-5.0); BUN Creatinine Ratio 24.4 (10-20); Bilirubin,Total 0.7 mg/dl (0.2-1.0); Calcium 8.5 mg/dl (8.5-10.1); Creatinine Clr Calc Pharmacy 149.9 ml/min; Est GFR (African American) 133.8 ml/min; Est GFR (Non-African American) 115.5 ml/min; Globulin 2.8 gm/dl (2.5-4.0); Phosphorus 3.9 mg/dl (2.5-4.9); Potassium 4.4 mmol/L (3.5-5.1); Total Protein 5.7 gm/dl (6.0-8.3)
[2021-10-21] MEDS: ENOXAPARIN INJ 40 MG/0.4 ML SYR SQ SCH (07:48)
[2021-10-21] MEDS: CHOLECALCIFEROL 1,000 UNITS 25 MCG TAB PO SCH (07:49)
[2021-10-21] MEDS: guaiFENesin 600 MG TABCR PO SCH (07:49)
[2021-10-21] MEDS: OXYBUTYNIN CHLORIDE XL 5 MG TABCR PO SCH (07:49)
[2021-10-21] MEDS: CEFEPIME 2,000 MG in SYRINGE 0 ML IV SCH ×2 (07:51→15:45)
[2021-10-21] MEDS: ASCORBIC ACID 500 MG TAB PO SCH (07:52)
[2021-10-21] MEDS: LANTUS PER UNIT CHARGE SQ SCH (08:19)
[2021-10-21] MEDS: INSULIN ASPART PER UNIT SC SCH ×2 (08:20→12:41)
--- NOTE | 2021-10-21 12:59 | Discharge Summary ---
Date of Service October 21, 2021 Admission HPI Per Admitting Provider Bill is a 71-year-old male with a history of prostate cancer with mets not pursuing chemo or radiation who recently returned from [employer] [place] in [employer] who has had 5 days of weakness, fatigue, muscle aches. +productive cough for brown sputum. No chest pain, no chest pressure. Mild shortness of breath since Wednesday. Walks at least one mile everyday, and notes his exercise tolerance was impoving in the weeks prior to leaving for [place]. 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 [place] feverish daily, some chills, some night sweats. His left to see his daughter in [place] and couldn't get AC to work so is not sure if he was truly feverish or just hot. Humidity does make his breathing worse. Denies difficulty with urination, change in urination, dysuria recently. 2 years ago was found to have increasing PSA. Discussed radiation and chemo, deferred these. "I'm almost 72. I want to have fun in my last year or years. There is only a 30% chance that it would work anyway". Reports that he does not want further treatment especially chemo/radiation for his cancer. post prostatectomy candidiasis resovled. Uses cream as needed, not on diflucan at this time. Medical History: Reviewed Medications: Reviewed Surgical History: Reviewed Allergies: Reviewed Social History: no tobacco use. +rare social alcohol use. 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 Code Status: Surrogate DM would be his daughter Naheed Luis. Is from and would not want her involved as a decision making surrogate. [phone]. DNR/DNI. Principal Diagnosis PNA Discharge Exam The patient is awake, alert and oriented 3, well developed and well nourished, normocephalic and atraumatic, lying in bed and in no acute distress. HEENT--PERRL, EOMI, mucous membranes and oropharynx mildly dry Neck--supple. No JVD. No bruits. Thyroid normal, trachea midline, no adenopathy. Heart--normal S1 and S2. No murmurs, rubs or gallops. Lungs--clear bilaterally, no respiratory distress, no accessory muscle use. Abdomen--normal bowel sounds and soft. Mild epigastric and left sided abdominal pain Extremities--no cyanosis or clubbing. No edema. Dermatologic--normal skin turgor, normal color, no abnormal lymph nodes, no rash. Neurologic--cranial nerves II through XII grossly intact. Rheumatologic--normal range of motion. Psychiatric--normal affect. Discharge Data Allergies Allergy/AdvReac Type Severity Reaction Status Date / Time latex Allergy Mild Rash Verified 10/16/21 15:29 adhesive AdvReac Mild Unknown Verified 10/16/21 15:29 Ordered Studies 10/16/21 11:14 CT chest with contrast [CT chest diagnostic w con] Stat Diabetes Follow up Diabetes Follow-up Needed for HgbA1c >9% Hospital Course (1) Pneumonia of both lower lobes: Patient presents to the [facility] with cough and sob CT chest and x ray confirm lobar pna cultures have been negative Currently on cefepime Afebrile, wbc wnl Will d/c on Cefdinir and Azithromycin for 5 days (2) Respiratory failure with hypoxia: Secondary to above, incentive spirometry and flutter valve, as above Depending on course can reimage, consider pulmonary input (3) Lymphocele: No complaints voiced in this regard (4) Rising PSA following treatment for malignant neoplasm of prostate: Oncology note from May 2021 noted; outpatient follow-up (5) Diabetes: Sugars in general acceptableno change today; A1c 11.2; discussed uncontrolled DM that needs to be properly addressed; he states he is working with PCP (6) Ambulatory dysfunction: PT/OT (7) Anemia: Noted drifting down hemoglobin but no clinical bleeding (asked again)likely inflammatory; observe; asked that he look for bleeding/dark stoolsoccult not ordered Plan d/c home Total Time Total Time Spent Total Time Spent (In Minutes): 35 Discharge Plan Discharge Items Patient Disposition: Home - Self-Care Reason For Visit: B/L PNEUMONIA Discharge Diagnosis: PNA Activity: Resume your previous activity Non-emergency contact: Primary Care Provider Call non-emergency contact if: you have any medication questions Follow-up/Referrals: Kamar Colón MD [Primary Care Provider] - (PLEASE CALL YOUR PRIMARY CARE PROVIDER TO SCHEDULE A DISCHARGE FOLLOW-UP APPOINTMENT WITHIN 7-10 DAYS. ) Diet: Regular Addtl Attending Provider Instructions: please make sure you follow up with your PCP Pending Studies at Discharge: No Stand-Alone Forms: My [facility], Smoking Cessation Medications and DC Order Prescriptions: New cefdinir 300 mg capsule 300 mg PO BID 5 Days Qty: 10 0RF azithromycin 500 mg tablet 500 mg PO DAILY 5 Days Qty: 5 0RF Continued nystatin 100,000 unit/gram ointment 1 applic topical TID Qty: 30 5RF clobetasol 0.05 % cream 1 applic topical BID Qty: 60 5RF betamethasone dipropionate 0.05 % cream 1 applic topical TID PRN (Reason: skin irritation) Qty: 45 11RF glipizide 10 mg Tablet Extended Release 24hr 10 mg PO BID metformin 1,000 mg Tablet 1,000 mg PO BID lisinopril 10 mg Tablet 10 mg PO HS pioglitazone 30 mg Tablet 30 mg PO HS ascorbic acid (vitamin C) [Vitamin C] 1,000 mg Tablet 1,000 mg PO QAM cholecalciferol (vitamin D3) [Vitamin D3] 1,000 unit Capsule 2,000 unit PO QAM omega [id number] oil [Fish Oil] 1,000 mg (120 mg-180 mg) Capsule 3,000 mg PO QAM atorvastatin 40 mg tablet 40 mg PO DAILY bicalutamide 50 mg tablet 50 mg PO DAILY Jardiance 25 mg tablet 25 mg PO DAILY Discharge Orders: Discharge Order (Routine); Ordered 10/21/21 Ordered By: Margoth Doherty/Other Patient Handouts: Managing Type 2 Diabetes Admission Data Admit Date/Time: 10/16/21 10:34 Attending Provider: Margoth Stevenson Admit Provider: Joss Pablo Primary Care Provider: Kamar Colón Other Providers: Joss Pablo ; [facility] Coding Level of Care Code D/C DAY MANAGEMENT >30 MINS Diagnoses Pneumonia of both lower lobes J18.9 Respiratory failure with hypoxia J96.91 Lymphocele I89.8 Rising PSA following treatment for malignant neoplasm of prostate R97.21 Diabetes E11.9 Ambulatory dysfunction R26.2 Anemia D64.9 Time Spent (min) 35
== END 2021-10-21 17:50 | disposition home health service (06) | DRG 193 ==
LOC: ED 08:00 → EDINP 10:34 → SUATTDRO 10:34 → EDINP 17:11 → 2N 19:20
DX: E78.5 Hyperlipidemia, unspecified; Z85.46 Personal history of malignant neoplasm of prostate; Z79.82 Long term (current) use of aspirin; J18.9 Pneumonia, unspecified organism; Z86.16 Personal history of COVID-19; J96.01 Acute respiratory failure with hypoxia; E11.9 Type 2 diabetes mellitus without complications; Z79.84 Long term (current) use of oral hypoglycemic drugs; C79.51 Secondary malignant neoplasm of bone; Z87.891 Personal history of nicotine dependence; E87.1 Hypo-osmolality and hyponatremia; Z91.040 Latex allergy status; E87.6 Hypokalemia; C79.89 Secondary malignant neoplasm of other specified sites; D64.9 Anemia, unspecified

== ENCOUNTER 2024-06-03 16:08 | Observation (INO) ==
--- NOTE | 2024-06-03 16:40 | Emergency Department Note ---
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 U-100 Insulin aspart] 100 unit/mL solution See Rx Instructions continuous subcutaneous infusion DAILY Qty: 60 3RF Rx Instructions: via continuous subcutaneous infusion daily; use up to 50 units daily via insulin pump (DME) pen needle, diabetic [BD Ashley 2nd Gen Pen Needle] 32 gauge x 5/32" needle See Rx Instructions .ROUTE .MEDSUPPLY Qty: 100 11RF Rx Instructions: Inject up to 4x a day with new pen needle ascorbic acid (vitamin C) [Vitamin C] 1,000 mg Tablet 1,000 mg PO QAM cholecalciferol (vitamin D3) [Vitamin D3] 1,000 unit Capsule 2,000 unit PO QAM omega 7-hts-thi-fish oil [Fish Oil] 1,000 mg (120 mg-180 mg) Capsule 3,000 mg PO QAM atorvastatin 40 mg tablet 40 mg PO QAM bicalutamide 50 mg tablet 50 mg PO DAILY aspirin 81 mg Tablet,Delayed Release (Dr/Ec) 81 mg PO DAILY diphenhydramine HCl [Benadryl Allergy] 25 mg Tablet 25 mg PO HS PRN (Reason: Itching) Referrals Referrals: Kamar Colón MD [Primary Care Provider] -
[2024-06-03 17:01] LABS: iSTAT Creatinine 0.8 mg/dl (0.6-1.3); iSTAT Hemoglobin 15.6 g/dl (14.0-18.0); iSTAT Ionized Calcium 1.25 mmol/l (1.12-1.32)
[2024-06-03 17:01] LABS: Basophils # (auto) 0.06 K/uL (0.00-0.20); Basophils % (auto) 0.6 %; Eosinophils # (auto) 0.13 K/uL (0.00-0.50); Eosinophils % (auto) 1.2 %; Hematocrit (blood only) 44.1 % (42.0-52.0); Immature Granulocytes # (auto) 0.03 K/uL (0.01-0.20); Immature Granulocytes % (auto) 0.3 %; Lymphocytes # (auto) 1.95 K/uL (1.20-3.40); Lymphocytes % (auto) 18.2 %; Mean Corpuscular Volume 91.1 fL (80.0-100.0); Mean Platelet Volume 8.7 fL (9.4-12.4); Monocytes # (auto) 1.17 K/uL (0.11-0.59); Monocytes % (auto) 10.9 %; Neutrophils # (auto) 7.35 K/uL (1.40-6.50); Neutrophils % (auto) 68.8 %; Platelet Count 267 K/uL (130-400); RDW Coefficient of Variation 13.2 % (11.5-14.5); RDW Standard Deviation 44.6 fL (36.4-46.3); Red Blood Count 4.84 M/uL (4.70-6.10); White Blood Count 10.69 K/ul (4.8-10.8)
[2024-06-03] MEDS: OPTIRAY 320 125ml IV ONE (17:08)
[2024-06-03 17:29] LABS: Albumin Globulin Ratio 1.8 (0.9-2); Albumin Level 4.8 gm/dl (3.4-5.0); BUN Creatinine Ratio 31.5 (10-20); Bilirubin,Total 1.9 mg/dl (0.2-1.0); Calcium 9.9 mg/dl (8.6-10.3); Creatinine Clr Calc Pharmacy 77.5 ml/min; Globulin 2.6 gm/dl (2.5-4.0); Potassium 4.1 mmol/L (3.5-5.1); Total Protein 7.4 gm/dl (6.0-8.3)
[2024-06-03 17:31] LABS: Partial Thromboplastin Ratio 0.9; Partial Thromboplastin Time 24 Seconds (21-31); Prothrombin Time 10.8 Seconds (9.0-12.0)
--- NOTE | 2024-06-03 18:16 | CT Scan Report ---
EXAM: CT head/brain wo con CLINICAL HISTORY: Trauma TECHNIQUE: An axial non-contrast CT scan of the brain was performed from the skull base to the high parietal region. One of the following dose reduction techniques was utilized for this exam: Automated exposure control, adjustment of the mA and/or kV according to patient size, and use of iterative reconstruction. (CTDI: 35.37 mGy, DLP: 2912.46 mGy*cm) COMPARISON: CT dated 05/11/2024 FINDINGS: Brain Parenchyma: Normal attenuation of the cerebral hemispheres, cerebellum, and brainstem. No evidence of acute infarct, hemorrhage, or mass effect. No abnormal areas of hyperattenuation. Ventricular System: Age-related involutional brain changes are denoted by mild dilatation of the cerebral ventricles with no midline shift or deformity. Subarachnoid Spaces: Prominent cortical sulci and extra-axial CSF spaces. still seen in prominent slightly high-density bilateral frontal superficial cortical veins No evidence of subarachnoid hemorrhage or extra-axial fluid collections. Cerebellum and Brainstem: Normal size and signal. No masses, lesions, or areas of abnormal signal. Orbits: Normal appearance of the globes, optic nerves, and extraocular muscles. No evidence of orbital masses or abnormal signals. Sinuses: Clear paranasal sinuses. No evidence of sinusitis or mucosal thickening. Mastoid Air Cells: Clear mastoid air cells. No evidence of mastoiditis. Skull: Normal skull morphology. Decreased the left frontal scalp hematoma IMPRESSION: 1. No acute intracranial abnormality. 2. Decreased the left frontal scalp hematoma. Electronically signed by Favio Lehman 06-03-2024 6:12 PM
--- NOTE | 2024-06-03 18:28 | CT Scan Report ---
EXAM: CT abd pelvis IV con only CLINICAL HISTORY: Trauma. TECHNIQUE: Contrast-enhanced CT of the abdomen and pelvis was performed, with the following protocol: axial images with, and reconstructed coronal and sagittal images. 115 ml optiray 320 was administered. One of the following dose reduction techniques was utilized for this exam: Automated exposure control, adjustment of the mA and/or kV according to patient size, and use of iterative reconstruction. DLP: 2912,4 mGy-cm, CTDI: 128.7 mGy. COMPARISON: CT dated 08/10/2023. FINDINGS: Abdomen: Liver: Normal in size, shape, and density. No focal lesions, cysts, or masses were identified. Tiny punctate hepatic calcification, likely granuloma, stable finding. Hepatic vasculature and biliary ducts are unremarkable. Gallbladder and Biliary System: The gallbladder is surgically excised. stable finding. The common bile duct is normal in caliber without dilation. Pancreas: Pancreatic head, body, and tail are visualized and appear normal in size and density. No pancreatic masses or calcifications were noted. The pancreatic duct is not dilated. Spleen: Normal in size, shape, and density. No splenic lesions or masses were identified. Appendix: The appendix is normal in size without julia appendiceal fat stranding, and without an appendicolith. No evidence of appendiceal abscess or perforation. Kidneys and Adrenal Glands: Both kidneys are normal in size, shape, and position. Cortical thickness is within normal limits. No renal calculi or hydronephrosis. Adrenal glands are unremarkable with no evidence of masses or hyperplasia. Pelvis: Urinary Bladder: Normal in contour. previously noted diffuse mural thickning now measuring 8 mm compared to 17 mm previously. No intraluminal lesions identified. Prostate: Not visualized, likely excised. Stable finding. Small sized atrophic testes. Stable finding. Seminal Vesicles: Normal in size and appearance. No abnormalities noted. Rectum and Sigmoid Colon: Normal wall thickness and no evidence of mass. Peritoneal and Retroperitoneal Structures: No free fluid or abnormal fluid collections were identified within the abdomen or pelvis. No lymphadenopathy was noted. Disappearance of the previously noted cystic structure at the left side of the pelvis beneath the anterior abdominal wall. Bowel: The visualized bowel loops are normal in caliber and appearance. No evidence of bowel obstruction or wall thickening. Bones and Soft Tissues: Degenerative changes of the spine, sacroiliac and hip joints as well as the symphysis pubis. Vascular calcification of the aorta and its branches. IMPRESSION: 1. No evidence of acute traumatic injury. 2. Decreased urinary bladder mural thickening. 3. Disappearance of the left pelvic cystic structure. 4. No other significant changes. 5. Correlate with clinical findings. Electronically signed by Favio Lehman 06-03-2024 6:27 PM
--- NOTE | 2024-06-03 18:44 | CT Scan Report ---
EXAM: CT cervical spine wo con CLINICAL HISTORY: Trauma. TECHNIQUE: CT scan of the cervical spine was performed without the administration of intravenous contrast. Contiguous axial images were obtained from the skull base to the upper thoracic spine. Coronal and sagittal reformatted images were also reviewed. One of the following dose reduction techniques was utilized for this exam. Automated exposure control, adjustment of the mA and/or kV according to patient size, and use of iterative reconstruction. COMPARISON: Comparison is made with the prior imaging dated 06/14/2015. FINDINGS: Vertebrae: straightened cervical curve. Minimal retrolisthesis of C4 over C5. Fused C5 and C6 vertebral bodies. Anterior marginal osteophytic lippings are seen at the opposing vertebral endplates. The vertebral bodies are normal in height. No evidence of acute fracture or dislocation. The cortical and trabecular bone patterns are normal. No signs of lytic or sclerotic lesions. Normal configuration of the posterior elements. Intervertebral Discs: Narrowed C6-7 disc space with irregularity and sclerosis of the opposing vertebral endplates. Facet Joints: Multilevel bilateral facetal arthropathy with bony hypertrophy is noted. Neural Foramina: Multilevel moderate foraminal stenosis is noted. Prevertebral Soft Tissues: The prevertebral soft tissues are normal in thickness without evidence of mass or abnormal fluid collection. Scanned apical lung cuts revealed bilateral apical reticular infiltrations likely representing the sequel of old granulomatous disease. IMPRESSION: 1. No evidence of acute fracture or dislocation. 2. Straightened cervical curve likely due to muscle spasm. 3. Minimal retrolisthesis of C4 over C5. 4. Spondylodegenerative changes of the cervical spine. 5. Compared to prior study there is progression of the degenerative changes. Electronically signed by Favio Lehman 06-03-2024 6:42 PM
--- NOTE | 2024-06-03 18:44 | CT Scan Report ---
EXAM: CT angio chest PE protocol CLINICAL HISTORY: PE. TECHNIQUE: CT angiography of the chest was performed with intravenous contrast with the following protocol: axial images with, reconstructed coronal and sagittal images. Intravenous contrast 115 ml Optiray 320 was administered using automated injection techniques. Bolus tracking was employed to optimize arterial phase imaging. One of these 3D techniques was utilized: Maximum Intensity Pixel (MIP), 3D Reconstructed Images, Volume Rendered Images, Surface Shaded Rendering. One of the following dose reduction techniques was utilized for this exam: Automated exposure control, adjustment of the mA and/or kV according to patient size, and use of iterative reconstruction. COMPARISON: 08/10/2023. FINDINGS: Aorta and Great Vessels: Ascending Aorta: Normal in caliber, no aneurysm, dissection, or significant atherosclerosis. Aortic Arch: Normal in caliber, no aneurysm, or dissection. mild atherosclerotic changes. Descending Aorta: Normal in caliber, no aneurysm, or dissection. mild atherosclerotic changes. Pulmonary Arteries: The main pulmonary artery and its branches are patent. No evidence of pulmonary embolism or significant stenosis. Heart: Cardiac Chambers: Normal in size. No evidence of cardiomegaly. Pericardium: No pericardial effusion or thickening. Lungs and Pleura: Bilateral apical pulmonary reticular infiltration is likely granulomatous. No evidence of consolidation, collapse, or focal lesions. Bilateral basal pulmonary gravitational haze. No pleural effusion or pleural thickening. Mediastinum: No mediastinal mass or abnormal lymphadenopathy. Normal appearance of the trachea and central bronchi. Hilar Structures: Hilar structures are normal without enlargement. Chest Wall: No mass lesions or abnormalities in the chest wall. Vascular Structures: Superior Vena Cava: Patent without evidence of stenosis or thrombus. Inferior Vena Cava: Patent without evidence of stenosis or thrombus. Bones and Soft Tissues: No fractures, lytic, or blastic lesions of the visualized bony structures. Soft tissues are unremarkable. Spondyldoegenrative changes . Scanned upper abdomen ; Hepatic calcific focus likley granulomatous . Cholecystectomy metallic brooks. IMPRESSION: 1. No evidence of pulmonary embolism. 2. Mild atherosclerotic changes of the aorta. 3. Bilateral apical pulmonary reticular infiltration is likely granulomatous. 4. No suspicious pulmonary nodules or mass lesions. 5. No interval changes. Electronically signed by Favio Lehman 06-03-2024 6:42 PM
[2024-06-03] MEDS: SODIUM CHLORIDE 0.9% 1,000 ML IV ONE (19:10)
[2024-06-03 19:54] LABS: Appearance Urine Clear (Clear); Bacteria Urine Automated None Seen (None Seen); Bilirubin Urine Negative (Negative); Blood Urine Negative (Negative); Cast Urine Automated 0-2 /lpf (0-2); Color Urine Yellow; Epithelial Cell Urine Auto 0-2 /hpf (0-2); Glucose Urine UA 3+ (Negative); Ketones Urine 3+ (Negative); Leukocyte Esterase Urine Negative (Negative); Nitrite Urine Negative (Negative); Protein Urine Trace (Negative); RBC Urine Automated 0-2 /hpf (0-2); Specific Gravity Urine > 1.045 (1.000-1.030); Urobilinogen Urine Negative (Negative); WBC Urine Automated 0-5 /hpf (0-5)
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
[2024-06-03 20:37] LABS: Magnesium 2.1 mg/dl (1.7-2.4); Phosphorus 2.8 mg/dl (2.5-4.9)
[2024-06-03 20:52] LABS: Thyroid Stimulating Hormone 2.809 uIu/ml (0.300-4.500)
[2024-06-03] MEDS ORDERED: GLUCOSE 40% GEL 15 GM TUBE PO PRN ×2 (21:40→22:00)
[2024-06-03] MEDS ORDERED: GLUCOSE 10 TAB/TUBE PO PRN ×2 (21:40→22:00)
[2024-06-03] MEDS ORDERED: DEXTROSE 50% 50 ML SYRINGE IV PRN ×2 (21:40→22:00)
[2024-06-03] MEDS ORDERED: GLUCAGON FOR INJ 1 MG VIAL SQ PRN ×2 (21:40→22:00)
[2024-06-03] MEDS ORDERED: CARBOHYDRATES FOR HYPOGLYCEMIA PO PRN ×2 (21:40→22:00)
[2024-06-03] MEDS ORDERED: POLYETHYLENE (MIRALAX) 17 GM PACK PO PRN (21:40)
[2024-06-03] MEDS ORDERED: ONDANSETRON INJ 2 MG/ML 2 ML VIAL IV PRN (21:40)
[2024-06-03] MEDS ORDERED: ACETAMINOPHEN 325 MG TAB PO PRN (21:40)
[2024-06-03] MEDS: INSULIN ASPART PER UNIT CHARGE SC SCH (22:12)
[2024-06-03] MEDS ORDERED: PHARMACY GLYCEMIC MGMT CONSULT PRN (22:14)
[2024-06-03] MEDS: LACTATED RINGER'S 1,000 ML IV SCH (22:21)
[2024-06-04] MEDS: Continuous Glucose Monitor SCH (07:36)
[2024-06-04] MEDS: ASCORBIC ACID 500 MG TAB PO SCH (07:40)
[2024-06-04] MEDS: LOSARTAN POTASSIUM 50 MG TAB PO SCH (07:41)
[2024-06-04] MEDS: BICALUTAMIDE 50 MG TAB PO SCH (07:42)
[2024-06-04] MEDS: ATORVASTATIN 40 MG TAB PO SCH (07:47)
[2024-06-04] MEDS: ASPIRIN 81 MG ECTAB PO SCH (07:47)
--- NOTE | 2024-06-04 08:39 | Electrocardiogram Report ---
Test Reason : Blood Pressure : */* mmHG Vent. Rate : 91 BPM Atrial Rate : 91 BPM P-R Int : 142 ms QRS Dur : 86 ms QT Int : 332 ms P-R-T Axes : 30 84 8 degrees QTcB Int : 408 ms Normal sinus rhythm T wave abnormality, consider inferior ischemia Abnormal ECG When compared with ECG of 16-Oct-2021 09:06, Inverted T waves have replaced nonspecific T wave abnormality in Inferior leads Confirmed by Lavon Hassan ([id number]) on 06/04/2024 8:39:13 AM Referred By: Confirmed By: Lavon Hassan
[2024-06-04] MEDS: INSULIN ASPART PER UNIT CHARGE SC SCH (09:21)
[2024-06-04] MEDS: LANTUS PER UNIT CHARGE SQ SCH (09:22)
[2024-06-04] MEDS ORDERED: FAMOTIDINE 20 MG TAB PO PRN (11:03)
[2024-06-04] MEDS: GADOBUTROL 65ML VIAL IV ONE (11:34)
--- NOTE | 2024-06-04 11:47 | Magnetic Resonance Report ---
MRI OF THE CERVICAL SPINE WITHOUT CONTRAST CLINICAL HISTORY: Fall. Vertigo. COMPARISON: Cervical spine CT June 03, 2024. TECHNIQUE: Utilizing a 3 Vickie magnet and dedicated coil, multiplanar, multiecho imaging of the cerv ical spine was performed without IV contrast. FINDINGS: There is reversal of the cervical lordosis. Vertebral body heights are maintained. No cervical spine fractures are identified by MRI. There is no suspicious marrow replacement. C5 and C6 vertebral haylie s are fused. Cervical cord signal and caliber are normal. There is no intracanalicular mass or fluid collection. There is trace prevertebral edema at the C4 and C5 levels. Anterior longitudinal ligament appears intact. Otherwise, paravertebral soft tissues are unremarkable. C2-C3: The central canal is patent. There is moderate facet arthrosis. There is moderate to severe l eft neural foraminal stenosis due to facet arthrosis and uncovertebral hypertrophy. Right neural fora men is patent. C3-C4: Central canal is patent. There is moderate bilateral neural foraminal stenosis due to facet a rthrosis and uncovertebral hypertrophy. C4-C5: Mild disc space narrowing is noted with mild disc bulge. This slightly effaces the ventral th ecal sac. There is mild central canal stenosis. There is moderate to severe left and mild right neura l foraminal stenosis due to facet arthrosis and uncovertebral hypertrophy. C5-C6: Osteophyte formation results in effacement of ventral thecal sac with mild central canal sten osis. There is mild to moderate left neural foraminal stenosis. Right neural foramen is patent. C6-C7: Moderate disc space narrowing is present. There is minimal posterior disc osteophyte complex. Central canal is patent. Right neural foramen is patent. There is moderate left neural foraminal gigi nosis. C7-T1: The central canal and neural foramen are patent. IMPRESSION: 1. No cervical spine fractures identified by MRI. 2. Trace prevertebral edema at the C4 and C5 levels. Although occult ligamentous injury is within the differential, this finding is of questionable significance given the small amount of edema. Otherwis e paravertebral soft tissues unremarkable. 3. Moderate degenerative disc disease and facet arthrosis within the cervical spine. Mild central can al stenosis at C4-C5 and C5-C6. 4. Multilevel neural foraminal stenosis, as above. ACT 112: Negative or not required by law. Electronically signed by: Zachariah Portillo M.D. 06/04/2024 11:45 AM
[2024-06-04 12:15] VITALS: BP 115/59; RESP 16; TEMP 97.7; O2SAT 96
--- NOTE | 2024-06-04 12:15 | Magnetic Resonance Report ---
MRI OF THE BRAIN WITHOUT AND WITH IV CONTRAST CLINICAL HISTORY: ? syncope, dysarthria, vertigo COMPARISON STUDY: Head CTs May 11, 2024 and June 03, 2024. TECHNIQUE: Utilizing a 3 Vickie magnet and dedicated coil, multiplanar, multiecho imaging of the brai n was performed pre and postcontrast administration. IV administration of 8 mL of Gadavist contrast was uneventful. FINDINGS: There are no foci of restricted diffusion to suggest acute infarct. No acute intracranial h emorrhage, midline shift or mass effect is present. Ventricular system is unremarkable. Basal cistern s are patent. There is no intracranial mass. Tiny bilateral CSF signal intensity subdural collections overlying the cerebral convexities are present. These have developed since CT of May 11, 2024. These measure 2 mm in thickness. There is no mass effect. Smooth pachymeningeal dural enhancement is present. A small focus of gliosis within the posterior left temporal lobe is chronic. A few small whi te matter T2 hyperintense foci are of doubtful significance. There are no calvarial lesions. IMPRESSION: 1. No evidence for acute infarct. 2. Tiny bilateral CSF signal intensity subdural collections overlying both cerebral convexities which have developed since CT of May 11, 2024. No mass effect. These favor subdural hygromas. Tiny ch ronic subdural hematomas could appear similar although is considered less likely given recent develop ment. 3. Pachymeningeal dural enhancement, likely related to the subdural collections. ACT 112: Negative or not required by law. Electronically signed by: Zachariah Portillo M.D. 06/04/2024 12:12 PM
[2024-06-04] MEDS: CALCIUM CARBONATE 500 MG CHEWABLE TAB PO PRN (12:16)
--- NOTE | 2024-06-04 13:51 | Pharmacy Report ---
Pharmacy Glycemic Short Note 2 - Date of Service June 04, 2024 - Glycemic Short BSG Results (Last 24 hours): 06/03/24 06/03/24 06/03/24 16:49 16:51 21:21 Glucose 172 H POC Glucose 128 H POC Glucose (other) 165 H 06/04/24 06/04/24 07:48 12:26 Glucose POC Glucose 157 H 144 H POC Glucose (other) OUTPATIENT ANTIDIABETIC REGIMEN: * Omnipod insulin pump * 0.7 units/hr (16.8 units/day) * CF of 44 (>120 mg/dL) * ICR: 12 * Metformin 500 mg PO BID * Jardiance 25 mg PO daily * Pioglitazone 30 mg PO HS HbA1c: ordered for 06/05/24 ASSESSMENT: * SHANDRA is a 74 year old male who presented to ED on 06/03/24 w/ weakness following a fall on * History of T2DM, managed with insulin pump and multiple oral medications (followed by [facility]) * Will utilize initial insulin regimen similar to outpatient pump settings * T2DM diet ordered PLAN FOR INPATIENT GLYCEMIC CONTROL: * Hold outpatient oral diabetes medications * Basal insulin * Lantus 8 units SQ BID * Bolus insulin * NovoLog per scale ACHS or Q6hrs while NPO * Goal Range: Low 110 mg/dL - High 140 mg/dL * Correction Factor: 40 mg/dL/unit * Nutritional / Prandial insulin per carb ratio of 1 unit per 12 grams CHO consumed
[2024-06-04 14:39] LABS: Anion Gap 11 (3-11); BUN Creatinine Ratio 34.9 (10-20); Blood Urea Nitrogen 22 mg/dl (6-23); C Reactive Protein < 0.50 mg/dl (0-0.5); Calcium 8.9 mg/dl (8.6-10.3); Carbon Dioxide 20 mmol/L (21-32); Chloride 105 mmol/L (98-107); Creatinine Clr Calc Pharmacy 109.4 ml/min; Glucose 183 mg/dl (70-99(Fasting)); Potassium 4.6 mmol/L (3.5-5.1); Sodium 136 mmol/L (136-145)
[2024-06-04 15:27] VITALS: PULSE 80
[2024-06-04 16:17] LABS: Appearance Urine Clear (Clear); Bilirubin Urine Negative (Negative); Blood Urine Negative (Negative); Color Urine Yellow; Glucose Urine UA 3+ (Negative); Ketones Urine 4+ (Negative); Leukocyte Esterase Urine Negative (Negative); Nitrite Urine Negative (Negative); Protein Urine Negative (Negative); Specific Gravity Urine 1.026 (1.000-1.030); Urobilinogen Urine Negative (Negative); pH Urine 5.5 (4.5-7.5)
--- NOTE | 2024-06-04 18:45 | Discharge Summary ---
Discharge Summary Date of Service June 04, 2024 Principal Dx & Hospital Course #1 = Principal Diagnosis (1) Weakness: (2) Diabetes mellitus, type 2: Plan 74-year-old with type 2 diabetes on OHAs and insulin pump, progressive weakness over past two years, who presented after a fall and syncopal episode. On 05/11 he had a fall which was mechanical, slipped on ice going up a step. He was doing alright at recent baseline until night when he got up to use the restroom. Both legs began shaking and he felt very weak. He was concerned he wound fall on tile floor so was able to get out into the hallway where he fell. Upper extremities were not shaking and he has no history of seizures. He awoke on the floor, perhaps 30 min later and the back of his head hurt. He had vertigo and was really unable to get up so lied on floor few hours then crawled back to bed. Following morning called friend on phone who noticed slurred speech. He also had headache and nausea during this time. Today he came in to ED. Extensive ED and admission imaging was unremarkable. This included CT head, cspine, CTA chest, CT abd/pelvis. After admission brain MRI and cspine MRI were done and there was no stroke and only mild cervical spinal stenosis. No events on tele and today he feels well, has been ambulatory, strongly wishes to discharge home. I am concerned about a few outstanding issues and preferred he stay overnight, however, he was adamant and the chance of something turning up in next 16h (seizure or arrhythmia) is low. I obtained report of recent stress Echo done at [facility] and he had an abnormal EKG stress response but a normal imaging/echo response to stress. LV function is normal, no rwma's notes. Structurally normal heart, no clear evidence of ischemic disease so arrhythmia risk is lower. We reviewed his dexcom readings for the past week and he was NOT HYPOGLYCEMIC during the night of the syncopal episode or at any other time My thought process is well detailed in the discharge instructions: "You had a fall and a syncopal episode (passed out). This could have been from low blood sugar, low blood pressure while standing, cardiac arrhythmia, or seizure I think you do have a concussion and that would explain the vertigo, slurred speech, increased weakness after the fall. These symptoms are not TIA-like (with the exception of slurred speech). Take it easy and avoid further falls or head trauma. We did not find any evidence of an infection, heart attack, stroke or other causes of passing out You have ketosis - you had a mild ketoacidosis when you came in, and 3+ ketones persist in your urine despite eating two meals today and well controlled blood sugar. I am worried about euglycemic ketoacidosis - usually this is an acute issue but rarely can be chronic and could cause weakness and other problems. -hold the jardiance until follow up in diabetes clinic, I think this medicine should probably be stopped -also hold the metformin until follow up in diabetes clinic Your EKG is abnormal. I reviewed your recent stress echo report and its reassuring -We will place referral for ambulatory quality assurance monitor body to look for arrhythmia - you can do this after your trip I'm worried about the progressive weakness and muscle wasting. -you had CT chest/abdomen and pelvis and brain and cspine MRI that were more or less normal, which is reassuring -thyroid, B12, creatine kinase, liver and kidney function are fine. The mildly elevated bilirubin might be Gilbert's syndrome based on our old labs here, which is harmless -we made referral to neurology to consider neuromuscular weakness, seizure -CK, ESR and CRP were normal, but some myopathies don't cause these to be elevated. Aldolase is pending -B1 level is pending. Its a good idea to take high-dose B1 supplement for replacement until this level is resulted. 200 mg twice a day for a month, then 100 mg daily -recommend asking your doctor to check labs for adrenal function" #T2DM - continue insulin and pioglitizone, hold jardiance and metformin because of acidosis follow up with endo clinic prior to resuming #HTN- Olmesartan #HLD- Atorvastatin #H/o Prostate CA w/ residual LUTS- S/p prostatectomy (2020); Bicalutamide, Vitamin C Notes For Next Care Provider aldolase and B1 pending neurology referral made for further evaluation of progressive weakness, muscle wasting referred for ambulatory quality assurance monitor body Medication Changes From Visit held Jardiance and metformin because of metabolic acidosis, ketosis on presentation (euglycemic) Admission HPI Per Admitting Provider 74-year-old male PMHx HTN, GERD, T2DM, HLD, and history of prostate CA who presents with recent GLF 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 States that 2 days COLLAR PADDER BLINDSTITCH in the evening patient had finished having dinner and when he was getting ready for bed, he was in the bathroom and suddenly felt his legs shaking and he felt as though he was wobbling and then the next and he remembers was waking up on the floor. States that he does not remember the fall and does not remember how long he was down. Believes that he may have hit his arm but nothing else. Patient stated that he laid on the floor for a little because he felt weak following this and he had to crawl to his bedroom. He was able to get himself into bed but noted that he was very cold. The following day, he stayed in bed all day because he felt that the room was spinning every time he will try to get up. He had slight chest pressure at that time, but no direct pain or SOB. On around 1300 the day of arrival the patient noted that he felt as though he had an abnormality in the back of his head and was concerned that something was wrong so he decided to be evaluated. He also notes that on the day of arrival a friend noted that his speech sounded slurred and he said that he agrees that it may be a little more different than normal. Patient states that he has had falls before, but they were all mechanical in nature or secondary to ice. States he has never had something like this happen before. He does often feel as though the room is spinning especially if he turns his head too quickly. Patient denies any tinnitus or worsening hearing abnormalities. No infectious symptoms to include URI, cough, or fever/chills. Overall denying chest pain, SOB, palpitations, abdominal pain, N/V/D/C, numbness/tingling, headache, fever or chills. Patient has not taken medications over the past 1 day. ED evaluation reveals no leukocytosis, stable H&H, normal PT/INR, CMP with CO2 20, AG 14, BUN 28, ratio 31.5, and glucose 172, bilirubin was 1.9; UA pending; chest CTA without evidence of PE, atherosclerotic changes of aorta, bilateral apical pulmonary reticular infiltration likely granulomatous, no acute findings; CTAP without acute findings; cervical spine CT with straightened cervical curvature likely due to muscle spasm, minimal retrolisthesis of C4 over C5, spondylodegenerative changes of cervical spine; head CT without acute findings, does reveal decreased L frontal scalp hematoma; EKG NSR and T wave abnormality (inferior). Provided with 1L NSS in ED. Please see Dr. Abbasi's attestation for adjustments/additions to treatment plan. Discharge Exam PHYSICAL EXAMINATION Last 24h vital signs reviewed, see documentation in flowsheet General: comfortable appearing, no distress HEENT: bilateral periorbital ecchymoses which appear old Lungs: Normal respiratory effort. Heart: Regular rate and rhythm Abdomen: nondistended Extremities: Warm, dry, well-perfused. No extremity edema. sarcopenia, especially evident are wasting of the interosseous muscles of his hands and hypothenar area, some bitemporal wasting, no fasciculations observed Neuro: Alert and oriented x 4, face symmetric, moves 4 extremities well Psych: Normal affect and behavior Discharge Plan Discharge Items Patient Disposition: Home - Self-Care Reason For Visit: SYNCOPE/FALL Discharge Diagnosis: Syncope Fall Concussion Possible euglycemic ketoacidosis Chronic weakness and muscle wasting Activity: Resume your previous activity Non-emergency contact: Primary Care Provider Call non-emergency contact if: you have any medication questions and your symptoms worsen Follow-up/Referrals: Kamar Colón MD [Primary Care Provider] - Diet: Regular Addtl Attending Provider Instructions: You had a fall and a syncopal episode (passed out). This could have been from low blood sugar, low blood pressure while standing, cardiac arrhythmia, or seizure I think you do have a concussion and that would explain the vertigo, slurred speech, increased weakness after the fall. These symptoms are not TIA-like (with the exception of slurred speech). Take it easy and avoid further falls or head trauma. We did not find any evidence of an infection, heart attack, stroke or other causes of passing out You have ketosis - you had a mild ketoacidosis when you came in, and 3+ ketones persist in your urine despite eating two meals today and well controlled blood sugar. I am worried about euglycemic ketoacidosis - usually this is an acute issue but rarely can be chronic and could cause weakness and other problems. -hold the jardiance until follow up in diabetes clinic, I think this medicine should probably be stopped -also hold the metformin until follow up in diabetes clinic Your EKG is abnormal. I reviewed your recent stress echo report and its reassuring -We will place referral for ambulatory quality assurance monitor body to look for arrhythmia - you can do this after your trip I'm worried about the progressive weakness and muscle wasting. -you had CT chest/abdomen and pelvis and brain and cspine MRI that were more or less normal, which is reassuring -thyroid, B12, creatine kinase, liver and kidney function are fine. The mildly elevated bilirubin might be Gilbert's syndrome based on our old labs here, which is harmless -we made referral to neurology to consider neuromuscular weakness, seizure -CK, ESR and CRP were normal, but some myopathies don't cause these to be elevated. Aldolase is pending -B1 level is pending. Its a good idea to take high-dose B1 supplement for replacement until this level is resulted. 200 mg twice a day for a month, then 100 mg daily -recommend asking your doctor to check labs for adrenal function It was a pleasure seeing you in the hospital, Consuelo Barlow MD Pending Studies at Discharge: Yes Stand-Alone Forms: My [facility], Smoking Cessation Medications and DC Order Prescriptions: New thiamine HCl (vitamin B1) 100 mg tablet 200 mg PO BID 30 Days Qty: 120 0RF Rx Instructions: take 2 tabs twice a day for thirty days then decrease to 1 tab daily. blood thiamine level pending - takes a few weeks to result Continued (DME) Dexcom G7 Sensor Device See Rx Instructions .Route Qty: 9 3RF Rx Instructions: Change sensor every 10 days (DME) Omnipod 5 G6-G7 Pods (Gen 5) Cartridge See Rx Instructions .Route Qty: 30 3RF Rx Instructions: Change pod Q3D pioglitazone 30 mg tablet 30 mg PO HS Qty: 90 3RF olmesartan 20 mg tablet 20 mg PO QAM (DME) blood-glucose meter [OneTouch Verio Reflect Meter] Misc See Rx Instructions .Route Qty: 1 0RF Rx Instructions: Check blood glucose 2-3 times a day if Dexcom Failure of hypoglycemia (DME) OneTouch Verio test strips Strip See Rx Instructions .ROUTE .MEDSUPPLY Qty: 50 5RF Rx Instructions: Check blood glucose 3 times daily for Dexcom failure (DME) lancets [OneTouch Delica Plus Lancet] 33 gauge misc See Rx Instructions .ROUTE .MEDSUPPLY Qty: 100 5RF Rx Instructions: Check blood glucose 3 times daily for Dexcom failure vitamin B complex Tablet 1 tab PO DAILY insulin aspart U-100 [Novolog FlexPen U-100 Insulin] 100 unit/mL (3 mL) insulin pen 25 unit subcut ONCE Qty: 15 3RF Rx Instructions: To be used in case of Omnipod pump failure. 1 unit for 12 grams of carb. Target of 120 with a CF of 44. insulin aspart U-100 [Novolog U-100 Insulin aspart] 100 unit/mL solution See Rx Instructions continuous subcutaneous infusion DAILY Qty: 60 3RF Rx Instructions: via continuous subcutaneous infusion daily; use up to 50 units daily via insulin pump (DME) pen needle, diabetic [BD Ashley 2nd Gen Pen Needle] 32 gauge x 5/32" needle See Rx Instructions .ROUTE .MEDSUPPLY Qty: 100 11RF Rx Instructions: Inject up to 4x a day with new pen needle ascorbic acid (vitamin C) [Vitamin C] 1,000 mg Tablet 1,000 mg PO QAM cholecalciferol (vitamin D3) [Vitamin D3] 1,000 unit Capsule 2,000 unit PO QAM omega [id number]-fish oil [Fish Oil] 1,000 mg (120 mg-180 mg) Capsule 3,000 mg PO QAM atorvastatin 40 mg tablet 40 mg PO QAM bicalutamide 50 mg tablet 50 mg PO DAILY aspirin 81 mg Tablet,Delayed Release (Dr/Ec) 81 mg PO DAILY diphenhydramine HCl [Benadryl Allergy] 25 mg Tablet 25 mg PO HS PRN (Reason: Itching) Held Jardiance 25 mg tablet 25 mg PO DAILY Qty: 90 3RF Hold Instructions: Resume on 07/02/24. don't restart unless your doctor tells you to metformin 500 mg tablet 500 mg PO BID Qty: 180 3RF Hold Instructions: Resume on 07/02/24. Hold unless your doctor to restart it Discharge Orders: Discharge Order (Routine); Ordered 06/04/24 Ordered By: Consuelo Barlow Admission Data Admit Date/Time: 06/03/24 19:45 Attending Provider: Consuelo Barlow Admit Provider: Ashtyn Abbasi Primary Care Provider: Kamar Colón Other Providers: Ashtyn Abbasi Other Interventions: Discharge Summary Assessment (RN) Last Done: 06/04/24 15:23 Hospital Stay Data Consultations 06/03/24 19:07 ED Decision to Admit Stat Diagnostic Imagining Performed 06/03/24 16:35 CT angio chest PE protocol Stat 06/03/24 16:36 CT abd pelvis IV con only Stat CT cervical spine wo con Stat CT head/brain wo con Stat 06/04/24 09:19 MR brain wo/w con Routine MR cervical spine wo con Routine Pending Results Patient Have Any Pending Studies at Discharge: Yes Discharge Instructions Given to Patient (Per Discharging Provider) You had a fall and a syncopal episode (passed out). This could have been from low blood sugar, low blood pressure while standing, cardiac arrhythmia, or seizure I think you do have a concussion and that would explain the vertigo, slurred speech, increased weakness after the fall. These symptoms are not TIA-like (with the exception of slurred speech). Take it easy and avoid further falls or head trauma. We did not find any evidence of an infection, heart attack, stroke or other causes of passing out You have ketosis - you had a mild ketoacidosis when you came in, and 3+ ketones persist in your urine despite eating two meals today and well controlled blood sugar. I am worried about euglycemic ketoacidosis - usually this is an acute issue but rarely can be chronic and could cause weakness and other problems. -hold the jardiance until follow up in diabetes clinic, I think this medicine should probably be stopped -also hold the metformin until follow up in diabetes clinic Your EKG is abnormal. I reviewed your recent stress echo report and its reassuring -We will place referral for ambulatory quality assurance monitor body to look for arrhythmia - you can do this after your trip I'm worried about the progressive weakness and muscle wasting. -you had CT chest/abdomen and pelvis and brain and cspine MRI that were more or less normal, which is reassuring -thyroid, B12, creatine kinase, liver and kidney function are fine. The mildly elevated bilirubin might be Gilbert's syndrome based on our old labs here, which is harmless -we made referral to neurology to consider neuromuscular weakness, seizure -CK, ESR and CRP were normal, but some myopathies don't cause these to be elevated. Aldolase is pending -B1 level is pending. Its a good idea to take high-dose B1 supplement for replacement until this level is resulted. 200 mg twice a day for a month, then 100 mg daily -recommend asking your doctor to check labs for adrenal function It was a pleasure seeing you in the hospital, Consuleo Barlow MD Total Time Total Time Spent Total Time Spent (In Minutes): I personally spent: 75 minutes today on clinical care activities including: reviewing chart notes and vital signs reviewing labs reviewing studies reviewing past records and obtaining records of previous stress echo examining and counseling the patient writing orders discharge instructions documentation Coding Level of Care Code 43771 INP/OBS DISCH >30 MIN Diagnoses Weakness R53.1 Diabetes mellitus, type 2 E11.9
[2024-06-04] MEDS ORDERED: NON-FORMULARY MEDICATION (Pioglitazone 30 mg tablet) PO SCH (21:00)
[2024-06-05] MEDS ORDERED: metFORMIN HCL 500 MG TAB PO SCH (17:00)
== END 2024-06-04 16:00 | disposition home or self-care (01) ==
LOC: ED 16:08 → 2W 16:08 → SUATTDRO 19:45 → 2W 20:56